=== PATIENT | female | born 1960 | race Caucasian/White ===

== ENCOUNTER 2017-12-19 11:43 | Emergency (ER) | payer MEDICAID, SELFPAY ==
[2017-12-19 11:44] VITALS: BP 139/69; PULSE 96; RESP 14; TEMP 36.7; O2SAT 96; BMI 31.4
--- NOTE | 2017-12-19 12:04 | ED.DCSUM_ITS ---
- ER Visit Summary Date of Service: 12/19/17 Chief Complaint: [] Constant urination History of Present Illness: The patient is a 57 F [] 3 of essential tremor she is being weaned from Valium to Topamax she reports for about a week she has noticed a sense of frequent urination no real dysuria she has not feels if she is emptying her bladder fully she comes in for evaluation she has history of intermittent UTIs COPD, her COPD is stable she has no other complaints she is eating drinking well no nausea vomiting or fever Physical Examination: [] she is in no distress she does have a slight tremor that states is not unusual for her head neck chest unremarkable abdomen soft nontender the backs unremarkable she is up and about walking around the room the urine appears cloudy and particulate it was sent for urine culture we are checking a bladder scan Test Results: [] Emergency Department Course and Treatment: [] The urine shows signs of UTI was sent for UA bladder scan results will be on the chart see nursing notes, at this time given all the above the patient was started on Toprol Floxin she understands the follow-up with her physicians to have the urine culture checked in the antibiotic adjusted as warranted and have explained her given her constant sense of urinary frequency she may benefit from seeing a urologist and she is referred to urology as well Treatment Plan: [] Post void bladder scan showed 25 cc of urine Disposition: [] Home stable Impression: [] Urinary tract infection This note was generated with [employer] dictation software. It may contain incorrect words, spelling, and punctuation that were not noted in review of the chart prior to signing ED Disposition - Plan for ED Patient: Chief Complaint: Complaint Instructions: ED UTI Cystitis Female Prescriptions: Ciprofloxacin [Cipro] 500 mg PO BID #14 tab Referrals: Ryan Epps MD [Primary Care Provider] - Kai Will MD [STAFF PHYSICIAN] -
[2017-12-19 12:38] LABS: Color, Urine Yellow (Yellow); Glucose, Dipstick Normal (Normal); Ketone-Dipstick Negative (Negative); Leukocyte Esterase-Dipstick 500 /ul (Negative); Nitrite-Dipstick Negative (Negative); Occult Blood-Urine 250 /ul (Negative); Protein-Dipstick 30 mg/dl (Negative); Urine Bilirubin Dipstick Negative (Negative); Urine Clarity Cloudy (Clear); Urine Urobilinogen Normal (Normal)
[2017-12-19 12:47] LABS: Red Blood Cells-Urine 25-50 SEEN /hpf (0-5); Squamous Epithelial Cells - UA 0-5 SEEN /hpf (5-10); White Blood Cells 10-25 SEEN /hpf (0-5)
[2017-12-19 12:48] LABS: Bacteria 2+ /hpf (None Seen); Mucous, Urine RARE /hpf (<or=2+)
--- NOTE | 2017-12-19 13:02 | ED.DEP ---
ED Disposition - Plan for ED Patient: Chief Complaint: Complaint Instructions: ED UTI Cystitis Female Prescriptions: Ciprofloxacin [Cipro] 500 mg PO BID #14 tab Referrals: Ryan Epps MD [Primary Care Provider] - Kai Will MD [STAFF PHYSICIAN] -
[2017-12-19] MEDS: Ciprofloxacin 250 MG Tablet 500 MG PO (13:22)
[2017-12-19 13:23] VITALS: BP 130/57; PULSE 74; RESP 16; O2SAT 99
== END 2017-12-19 13:26 | disposition home or self-care (01) ==
PROVIDERS: Emergency Provider Emergency Medicine; Family Provider Family Medicine; PCP Family Medicine
DX: N39.0 Urinary tract infection, site not specified (principal); Z87.440 Personal history of urinary (tract) infections
CPT/HCPCS: 81001; 87086; 87088; 99283; A4216

== ENCOUNTER 2019-04-15 15:51 | Emergency (ER) | payer MEDICAID, SELFPAY ==
[2019-04-15 15:52] VITALS: BP 108/88; PULSE 93; RESP 18; TEMP 36.8; O2SAT 97; BMI 29.8
[2019-04-15 16:29] VITALS: PULSE 78; RESP 16
[2019-04-15] MEDS: Ipratropium/Albuterol Sulfate 3 ML AMPUL.NEB INHALATION (16:29)
[2019-04-15 16:35] VITALS: O2SAT 98
[2019-04-15 16:38] LABS: Basophil# 0.03 X10^3/uL; Basophil% 0.3 % (0-1); Eosinophil# 0.06 X10^3/uL; Eosinophils% 0.6 % (0-5); Hematocrit 46.3 % (37-47); Hemoglobin 15.4 g/dL (12.0-15.0); Lymphocyte % 21.8 % (19-41); Mean Corp Hgb Conc 33.3 g/dL (32-36); Mean Corpuscular Volume 96.3 fL (81-99); Mean Platelet Vol. 13.4 fl (6.2-12.0); Monocyte# 0.79 X10^3/uL; Monocyte% 7.8 % (0-10); NRBC Flagged by Analyzer 0 % (0-5); Neutrophil # 6.96 X10^3/uL (2.7-7.7); Neutrophil % 69.1 % (47-70); Platelet Count 179 K/mm3 (150-450); RBC Distribution Width CV 14.3 % (11.6-14.6); RBC Distribution Width SD 50.4 fl (35.1-43.9); Red Blood Count 4.81 M/mm3 (4.2-5.4); White Blood Count 10.1 K/mm3 (4.4-11.0)
--- NOTE | 2019-04-15 16:48 | ED.VIS.URI ---
History of Present Illness Chief Complaint: Shortness of Breath Narrative: Patient presenting for evaluation secondary to a cough. Patient has a underlying history of COPD and smoking. Patient states that for the last 4 weeks she has been dealing with a respiratory illness. She states associated with sinus pressure congestion and drainage and a, productive cough. Patient reports that she was seen at a outside facility for this about 3 weeks ago was placed on a course of azithromycin as well as prednisone. Patient states that she did not have any improvement. She continues to have some subjective fevers. She denies any nausea or vomiting although she has had some posttussive emesis. No diarrhea. No sick contacts or recent hospital admissions. Past Medical History - Allergies and Home Meds Allergies/Adverse Reactions: Allergies Penicillins Allergy (Verified 04/15/19 15:52) Unknown Sulfa (Sulfonamide Antibiotics) Allergy (Verified 04/15/19 15:52) Angioedema clonazepam [From Klonopin] Adverse Reaction (Verified 04/15/19 15:52) Vomiting paroxetine [From Paxil] Adverse Reaction (Verified 04/15/19 15:52) Vomiting Primary Care Physician: Ryan Epps MD [Primary Care Provider] - Smoking Status: Current every day smoker Review of Systems All systems negative except as indicated General: Reports: Chills ENT: Reports: Rhinorrhea Respiratory: Reports: Cough Physical Exam Vital Signs/Narrative: Vital Signs Temp Pulse Resp BP Pulse Ox 04/15/19 16:29 78 16 04/15/19 15:52 98.3 F 93 18 108/88 H 97 General: Well nourished, Well developed Head: Normocephalic, Atraumatic, Maxillary Tenderness Eyes: Perrl, EOMI Nose: Normal Inspection, No Rhinorrhea Mouth/Throat: Normal Inspection, No Posterior Erythema Neck: Supple, Nontender Cardiovascular: Regular rate, Regular rhythm, No murmurs Respiratory: No distress, CTA bilaterally, Chest nontender Abdomen: Soft, Nontender, Nondistended, Normal bowel sounds Extremities: Nontender, No edema Skin: Normal color, No rash Neurological: Alert, Oriented x3, Cranial nerves II-XII grossly intact, Normal Strength, Normal Sensation Psychological: Normal affect Diagnostic/Tx/Re-eval Chest X-Ray - ED: 2 View, Read by ED Physician, Read by Radiologist, Normal - Medical Decision Making Patient presented secondary to a cough of about a months duration. IV was established patient was given a breathing treatment laboratory studies were obtained. Chest x-ray by my personal interpretation as well as radiology is negative. CBC chemistry were unremarkable. I did send a pertussis panel on this patient which is still pending. Regardless, the patient's already been on the treatment for pertussis and potentially she is just having the secondary cough. Patient actually at this point really has more symptomatology of sinusitis as she has right maxillary sinus tenderness and this persistent cough and drainage. Patient will be treated with a prolonged course of doxycycline. She requested a prescription for albuterol for her nebulizer which will be provided. Patient will also be given a prescription for a antitussive. ED Disposition - Plan for ED Patient: Disposition: Home or Assisted Living Diagnosis: Sinusitis Prescriptions: Doxycycline 100 mg PO BID #28 cap Prescription Printed Guaifenesin Dm [Robitussin Dm] 10 ml PO Q6H PRN PRN #1 udc PRN Reason: Cough Prescription Printed Albuterol Aerosols [Ventolin Aerosols] 2.5 mg INHALATION Q4H PRN #25 vial Prescription Printed Referrals: Ryan Epps MD [Primary Care Provider] - 1 Week
[2019-04-15 17:03] VITALS: BP 110/65; PULSE 81; RESP 14; TEMP 37; O2SAT 93
[2019-04-15 17:03] LABS: Anion Gap 5 (5-15); BUN 8 mg/dL (7-18); BUN/Creat Ratio 7.6 RATIO (10-20); Calcium,Total 9.2 mg/dL (8.5-10.1); Chloride 107 mmol/L (98-107); Creatinine, Serum 1.05 mg/dL (0.55-1.02); EST Glomerular Filtration Rate 57 mL/min (>60); Est Glom Filt Rate - Afr Amer 69 mL/min (>60); Estimated Creatinine Clearance 49.82 ml/min; Glucose 92 mg/dL (74-106); Potassium 3.8 mmol/L (3.5-5.1); Sodium Level 138 mmol/L (136-145)
--- NOTE | 2019-04-15 17:10 | RAD_ITS ---
STUDY: X-RAY CHEST REASON FOR EXAM: Female, 58 years old. Shortness of breath, left rib pain, fall 2010 days ago TECHNIQUE: Two view of the chest were performed COMPARISON: None. FINDINGS: Lungs are clear. There is no pneumothorax, pulmonary edema, pleural effusions or cardiomegaly. Osseous structures are intact. There are no displaced rib fractures. There is no gas under the diaphragms. [ ] RAD/Chest PA and Lateral IMPRESSION: 1. No acute cardiorespiratory disease. [ ] Electronically Signed: Angelic De, at 17:31 EDT Tel , Service support ,
[2019-04-15] MEDS: Acetaminophen 500 MG Tablet 1000 MG PO (17:34)
--- NOTE | 2019-04-15 18:09 | ED.DEP ---
ED Disposition - Plan for ED Patient: Disposition: Home or Assisted Living Diagnosis: Sinusitis Instructions: SINUSITIS, Abx Tx Prescriptions: Doxycycline 100 mg PO BID #28 cap Prescription Printed Guaifenesin Dm [Robitussin Dm] 10 ml PO Q6H PRN PRN #1 udc PRN Reason: Cough Prescription Printed Albuterol Aerosols [Ventolin Aerosols] 2.5 mg INHALATION Q4H PRN #25 vial Prescription Printed Referrals: Ryan Epps MD [Primary Care Provider] - 1 Week
[2019-04-15 18:19] VITALS: BP 109/66; PULSE 80; RESP 17; TEMP 37; O2SAT 94
[2019-04-20 12:43] LABS: B. pertussis IgA 6.2 index (0.0-0.9); B. pertussis IgM < 1.0 index (0.0-0.9)
[2019-04-20 14:03] LABS: B. pertussis IgG 3.87 index (0.00-0.94)
== END 2019-04-15 18:21 | disposition home or self-care (01) ==
PROVIDERS: Emergency Provider Emergency Medicine; Family Provider Family Medicine; PCP Family Medicine
DX: J32.0 Chronic maxillary sinusitis (principal); J44.9 Chronic obstructive pulmonary disease, unspecified; F17.200 Nicotine dependence, unspecified, uncomplicated; Z79.51 Long term (current) use of inhaled steroids
CPT/HCPCS: 71046; 80048; 85025; 87804; 94640; 99285; A4216

== ENCOUNTER 2020-10-31 12:53 | Outpatient (RCR) | payer MEDICAID, SELFPAY | END 2021-01-01 23:59 | LOC: IMMUN 12:53 | PROVIDERS: PCP Family Medicine; Visit Provider Family Medicine | DX: Z23 Encounter for immunization (principal) | CPT/HCPCS: 0001A; 0002A; 91300 ==